=== PATIENT | male | born 1965 | race Two or more races ===

== ENCOUNTER 2019-09-08 21:56 | Emergency (ER) | payer SELFPAY ==
[~2019-09-08] VITALS: Ht 170.2 cm; Wt 71.6 kg
[2019-09-08 22:53] LABS: BASOPHILS # (AUTO) 0.02 x10^3/uL (0-0.1); BASOPHILS % (AUTO) 0 % (0-1); EOSINOPHILS # (AUTO) 0.06 x10^3/uL (0-0.4); EOSINOPHILS % (AUTO) 1 % (1-7); LYMPHOCYTES # (AUTO) 1.76 x10^3/uL (1-3.4); LYMPHOCYTES % (AUTO) 37 % (22-44); MD NO; MEAN CORPUSCULAR HEMOGLOBIN 33.4 pg (27.5-34.5); MEAN CORPUSCULAR HGB CONC 34.2 g/dL (33.2-36.2); MEAN CORPUSCULAR VOLUME 97.4 fL (81-97); MEAN PLATELET VOLUME 8.1 fL (7.4-10.4); MONOCYTES # (AUTO) 0.25 x10^3/uL (0.2-0.8); MONOCYTES % (AUTO) 5 % (2-9); NEUTROPHILS # (AUTO) 2.72 x10^3/uL (1.8-6.8); NEUTROPHILS % (AUTO) 57 % (42-75); PLATELET COUNT 273 x10^3/uL (130-400); RED BLOOD COUNT 4.38 x10^6/uL (4.38-5.82); RED CELL DISTRIBUTION WIDTH 12.4 % (9.4-14.8)
[2019-09-08 23:04] LABS: ALANINE AMINOTRANSFERASE 33 U/L (12-78); ALBUMIN 3.9 g/dL (3.4-5.0); ANION GAP 9 mmol/L (5-15); CALCIUM 9.3 mg/dL (8.5-10.1); CHLORIDE 106 mmol/L (98-107)
[2019-09-08 23:07] LABS: ALKALINE PHOSPHATASE 62 U/L (45-117); BILIRUBIN,TOTAL 0.3 mg/dL (0.2-1.0); TOTAL PROTEIN 7.6 g/dL (6.4-8.2)
[2019-09-09 01:37] VITALS: BP 162/98
== END 2019-09-09 01:37 | disposition home or self-care (01) ==
LOC: ED 22:59
DX: L02.211 Cutaneous abscess of abdominal wall (principal); F15.122 Other stimulant abuse with intoxication with perceptual disturbance; F41.9 Anxiety disorder, unspecified; F17.200 Nicotine dependence, unspecified, uncomplicated
CPT/HCPCS: 36415; 74177; 80053; 85025; 99284

== ENCOUNTER 2020-06-13 11:22 | Emergency (ER) | payer SELFPAY ==
[~2020-06-13] VITALS: Ht 170.2 cm; Wt 67.8 kg
[2020-06-13 12:39] VITALS: BP 155/101
--- NOTE | 2020-06-13 12:44 | NUR ---
ALL TESTS RESULTED. PT IS UP FOR RECHECK AT THIS TIME. VSS, SAYRAN.
[2020-06-13] MEDS ORDERED: DEXAMETHASONE 4 MG TABLET ONE (13:28)
--- NOTE | 2020-06-13 13:29 | NUR ---
MED NOVA FROM PHARMACY.
[2020-06-13] MEDS ORDERED: DEXAMETHASONE 4 MG TABLET PO ONE (13:30)
[2020-06-13] MEDS ORDERED: BICILLIN-LA 1,200,000 UNITS/2 ML IM ONE (13:30)
--- NOTE | 2020-06-13 13:58 | NUR ---
MED ARRIVED FROM PHARMACY.
--- NOTE | 2020-06-13 14:10 | NUR ---
Patient given discharge instructions and they have confirmed that they understand the instructions. Patient ambulatory with steady gait.
== END 2020-06-13 14:12 | disposition home or self-care (01) ==
LOC: ED 13:28
DX: J02.0 Streptococcal pharyngitis (principal); I10 Essential (primary) hypertension
CPT/HCPCS: 71045; 87880; 96372; 99284; J0561